=== PATIENT | male | born 1990 | race Caucasian/White ===

== ENCOUNTER 2016-07-21 18:30 | Emergency (ER) | payer OTHER ==
[~2016-07-21] VITALS: Ht 172.7 cm; Wt 77.1 kg
[2016-07-21] MEDS ORDERED: SYMB80INH INH (18:40)
[2016-07-21] MEDS ORDERED: PROA1AER INH (18:40)
[2016-07-21] MEDS ORDERED: METOCLOPRAMIDE INJ 10MG/2ML VIAL (J2765) IV ONE (20:15)
[2016-07-21] MEDS ORDERED: REGL10TA6 PO (21:22)
[2016-07-21 21:33] VITALS: BP 129/81
== END 2016-07-21 21:32 | disposition home or self-care (01) ==
LOC: M ED 19:26
DX: R06.6 Hiccough (principal); J45.909 Unspecified asthma, uncomplicated; J34.2 Deviated nasal septum; Z79.899 Other long term (current) drug therapy
CPT/HCPCS: 96374; 99282; J2765